=== PATIENT | female | born 1945 | race Caucasian/White ===

== ENCOUNTER 2020-10-21 23:44 | Emergency (ER) | payer OTHER ==
[2020-10-21 23:55] VITALS: BMI 31.2
[2020-10-22] MEDS ORDERED: FAMOTIDINE 20 MG/50 ML IVPB 20 MG/50 ML MG IVPB ONE ×2 (00:06→00:15)
[2020-10-22] MEDS ORDERED: DEXAMETHASONE SOD PHOSPHATE 10 MG/1 ML VIAL IVPUSH ONE (00:06)
[2020-10-22] MEDS ORDERED: SODIUM CHLORIDE 0.9% 500 ML INFUS.BAG IV ONE (00:07)
[2020-10-22] MEDS ORDERED: DEXAMETHASONE SOD PHOSPHATE 10 MG/1 ML VIAL ONE (00:15)
[2020-10-22 03:26] VITALS: PULSE 90
[2020-10-22 06:20] VITALS: BP 145/65; TEMP 98.3
== END 2020-10-22 06:39 | disposition home or self-care (01) ==
LOC: JER 23:44
PROC: 3E033NZ Introduction of Analgesics, Hypnotics, Sedatives into Peripheral Vein, Percutaneous Approach (ICD-10-PCS; principal; 2020-10-22)
PROC: 3E033GC Introduction of Other Therapeutic Substance into Peripheral Vein, Percutaneous Approach (ICD-10-PCS; 2020-10-22)
DX: L50.9 Urticaria, unspecified (principal)
CPT/HCPCS: 99285-25; J1100